=== PATIENT | female | born 2000 | race Two or more races ===

== ENCOUNTER 2023-03-14 09:13 | Emergency (ER) | payer OTHER, SELFPAY ==
[2023-03-14 09:17] VITALS: BP 134/87; PULSE 94; RESP 18; TEMP 36.8; O2SAT 100; BMI 20.9
--- NOTE | 2023-03-14 09:29 | ED.EYEPROB ---
HPI - Eye Problem General Chief complaint: Eye Problems Stated complaint: Left eye swollen/ itchiness Time Seen by Provider: 03/14/23 09:22 Source: patient and RN notes reviewed Mode of arrival: ambulatory History of Present Illness HPI Narrative: This is a 22-year-old female who presents to the emergency department with complaints of left upper eyelid swelling x 4 days. Patient reports that several days ago she woke up and noticed that her left upper eyelid was swollen. She has been applying warm compresses to her left eye multiple times a day without any relief. She has noticed that the swelling has increased over the last few days. No trauma to her left eye. Denies foreign body sensation to her left eye. Denies any ocular symptoms. She has had no fevers, chills, blurred vision, eye pain, visual changes, headache, sinus pain, ear pain, cough, shortness of breath, nausea, vomiting or diarrhea. No other complaints or concerns at this time. MD chief complaint: other (eyelid swelling) Onset (ago): day(s) Onset description: sudden Duration: constant Location: left eye Place: home Mechanism: none Severity: moderate If Pain, Quality: aching Associated symptoms: none Treatments Prior to Arrival: none Related Data Previous Rx's Medication Instructions Recorded erythromycin 5 mg/gram (0.5 %) eye 1 appl ophthalmic-Left DAILY 7 03/14/23 ointment days #3.5 grams Allergies Allergy/AdvReac Type Severity Reaction Status Date / Time No Known Allergies Allergy Verified 03/14/23 09:18 Review of Systems Review of Systems: Yes all other systems are reviewed and are negative [facility] Past Medical History Medical History (Updated 03/14/23 @ 09:38 by Edgar Weber) No known health problems Social History Social History Alcohol intake: never Smoked in Last 30 Days: No Use of substances other than those prescribed or required for medical reasons: Yes Substance Use Type: Marijuana Substance Use Frequency: Occasionally Advance Directives: No Advance Directives Information Provided: No Patient : No Physical Exam Vital Signs: Vital Signs: Last Vital Signs Temp 98.2 F 03/14/23 09:17 Pulse 94 03/14/23 09:17 Resp 18 03/14/23 09:17 BP 134/87 03/14/23 09:17 Pulse Ox 100 03/14/23 09:17 O2 Del Method Room Air 03/14/23 09:17 BMI result Body Mass Index 20.9 General: Awake, alert, and oriented X3. No acute distress. HEENT: Normal inspection, conjunctivae normal, sclera clear. Left upper eyelid is edematous and mildly tender to palpation, no erythema to the upper eyelid. Lower lid normal. Eversion of left upper eyelid revealing mild erythema without punctate lesion. No pain with EOMI. PERRL bilaterally. CVS: Normal heart rate and rhythm. Pulses normal. S1S2 regular. Respiratory: No respiratory distress, lungs clear to auscultation bilaterally. Skin: Warm, dry, no rashes noted to exposed skin. Normal skin color. Normal skin turgor. Extremities: Normal inspection. Neuro: Oriented X 3. No motor deficit. No sensory deficit. Medical Decision Making Medical Decision Making MDM Narrative: 22 y/o F presents for left upper eyelid swelling x 4 days. No relief at home with warm compresses. On examination, patient's VSS. No conjunctiva erythema or edema. No ocular pain, tearing, or pain with EOMI only upper eyelid edema on examination. Upper eyelid eversion with mild erythema and edema. No foreign body sensation to the left eye. Patient has no ocular pain or symptoms and only is complaining of eyelid symptoms. Will defer fluroescein stain at this time.Will treat as a blepharitis with topical erythromycin. Visual acuity intact. Given red flag signs of when to return for re-evaluation. Patient understands and agrees with plan. Differential Diagnosis Differential Diagnoses: The differential diagnosis associated with the presentation includes blepharitis, hordeolum, conjunctivitis, pre-septal cellulitis - unlikely Discharge Plan Discharge Clinical Impression: Blepharitis of left eyelid Patient Disposition: Home, Self-Care Instructions: Blepharitis (ED) Additional Instructions: Use antibiotic ointment as directed. Continue applying warm compresses to your left eye. Do this every 2-3 hours. Watch for any worsening symptoms including but not limited to worsening swelling, increased redness, fevers, chills, eyeball pain, or visual changes. Follow up with your primary care physician. Return with any new or worsening symptoms. Prescriptions: New erythromycin 5 mg/gram (0.5 %) ointment 1 appl ophthalmic-Left DAILY 7 Days Qty: 3.5 0RF Interventions: ED Discharge Assessment Last Done: 03/14/23 09:53 Discharge Date/Time: 03/14/23 09:54
== END 2023-03-14 09:54 | disposition home or self-care (01) ==
PROVIDERS: Emergency Provider Emergency Medicine
DX: H01.004 Unspecified blepharitis left upper eyelid (principal)
CPT/HCPCS: 99283; 99284

== ENCOUNTER 2024-09-03 18:30 | Emergency (ER) | payer OTHER, SELFPAY ==
[2024-09-03 18:38] VITALS: BP 106/70; PULSE 75; RESP 16; TEMP 36.8; O2SAT 99; BMI 19.9
--- NOTE | 2024-09-03 18:46 | ED.GENADULT ---
HPI - General Adult General Chief complaint: Upper Respiratory Symptoms Stated complaint: flu like symptoms Time Seen by Provider: 09/03/24 18:50 Source: patient and family Mode of arrival: ambulatory Limitations: no limitations History of Present Illness ED Provider: DR. Gale HPI narrative: 24-year-old female presented with her significant other for evaluation of same symptoms of generalized body ache, runny nose, coughing, sore throat. Related Data Previous Rx's ?Medication ?Instructions ?Recorded erythromycin 5 mg/gram (0.5 %) eye 1 appl ophthalmic-Left DAILY 7 03/14/23 ointment days #3.5 grams Allergies Allergy/AdvReac Type Severity Reaction Status Date / Time No Known Allergies Allergy Verified 09/03/24 18:41 Review of Systems Review of Systems: All other systems are reviewed and are negative Constitutional: Reports as per HPI and Reports no additional constitutional complaints Eyes: Reports as per HPI and Reports no additional eye complaints Reports system reviewed and no additional complaints, except as documented Cardiovascular: Reports as per HPI and Reports no additional cardiovascular complaints Respiratory: Reports as per HPI and Reports no additional respiratory complaints Gastrointestinal: Reports as per HPI and Reports no additional gastrointestinal complaints Genitourinary: Reports no additional female genitourinary complaints Musculoskeletal: Reports no additional musculoskeletal complaints Skin/Breast: Reports system reviewed and no additional complaints, except as docu Psychiatric: Reports no additional psychiatric complaints Endocrine: Reports no additional endocrine complaints Hematologic/Lymphatic: Reports no additional hematologic/lymphatic complaints Allergic/Immunologic: Reports no additional allergic/immunologic complaints Reports system reviewed and no additional complaints, except as documented and Reports Abnormal speech present [facility] Past Medical History Medical History No known health problems Social History Social History Alcohol intake: never Substance Use Type: Marijuana Advance Directives: No Advance Directives Information Provided: No Physical Exam ED Vital Signs: Vital Signs - 24 hr 09/03/24 18:38 Temperature 98.3 F Pulse Rate 75 Respiratory Rate 16 Blood Pressure 106/70 Pulse Oximetry 99 Oxygen Delivery Method Room Air BMI result Body Mass Index 19.9 Vital signs have been reviewed and appear to be correct. Blood pressure elevated. Heart rate normal. Respiratory rate normal. Temperature normal. Oxygen saturation normal. Appearance: Alert. Oriented X3. No acute distress. Head: Normal external exam. Normocephalic. Atraumatic. No Conley signs noted. No raccoon eyes noted Eyes: PERRLA. EOMI. Conjunctiva and sclera normal. Eyelids normal. ENT: TM's Normal. Pharynx normal. Uvula midline. Moist mucous membranes. No trismus noted. No drooling noted. No muffled voice noted. Neck: Normal inspection. Neck supple. FROM. No adenopathy. Thyroid Normal. No meningeal signs. No neck mass noted. CVS: Normal heart rate and rhythm. Heart sound normal. No murmurs noted. Pulses normal throughout. Respiratory: No respiratory distress. Painless inspiration. Breath sounds normal. No wheezes/rales/rhonchi noted. Chest nontender. No accessory muscle usage noted or decreased air movement noted. Abdomen: Soft and nontender. Bowel sounds normal in all 4 quadrants. No distention noted. No organomegaly noted. No visible injury noted. Back: No CVA tenderness. Full range of motion noted. Skin: Skin warm and dry. Normal skin color. Normal skin turgor. No rashes/lesions/lacerations noted. Extremities: No lower extremity edema. Extremities exhibit normal range of motion. Extremities nontender. Neuro: Oriented X 3. Cranial nerve exam: II-XII are grossly intact No motor deficit. No sensory deficit. Reflexes normal. Course Course Course Narrative: RME performed by Gwendolyn Hester PA-C. Patient is a 24 year old assigned female at presenting to the emergency department with congestion and feeling generally unwell. Detailed physical exam and review of systems are deferred to the flag decorator. Swabs ordered. Patient placed back in the waiting room pending room availability and results. Medical Decision Making Differential Diagnosis Differential Diagnoses: The differential diagnosis associated with the presentation includes ( Upper viral respiratory infection, strep pharyngitis.) Admission/Observation Consideration of admission/observation: Escalation of care including admission/observation considered Lab Data MDM Lab Attestation statement: I reviewed the patient's lab results. Labs: Lab Results 09/03/24 Range/Units 19:01 Influenza Type A (PCR) NEGATIVE (Negative) Influenza Type B (PCR) NEGATIVE (Negative) RSV RNA Qual (PCR) NEGATIVE (Negative) SARS-CoV-2 RNA (RT-PCR) NEGATIVE (Negative) S. pyogenes GrpA KYE Negative (Negative) Discharge Plan Discharge Clinical Impression: Viral infection Patient Disposition: Home, Self-Care Instructions: Viral Syndrome (ED) Additional Instructions: Wear face mask at all times, frequent hand wash, keep social distancing, self quarantine. Follow-up with your PCP. Prescriptions: No Action erythromycin 5 mg/gram (0.5 %) ointment 1 appl ophthalmic-Left DAILY 7 Days Qty: 3.5 0RF Print Language: Icelandic
[2024-09-03 19:24] LABS: IDNOW Serial# 6674DD1D; Strep A Nucleic Acid Negative (Negative)
[2024-09-03 19:53] LABS: Influenza A PCR NEGATIVE (Negative); Influenza B PCR NEGATIVE (Negative); Resp Syncy Virus RNA Qual PCR NEGATIVE (Negative); SARS COV2 PCR INHOUSE NEGATIVE (Negative)
[2024-09-03 20:32] VITALS: BP 106/70; PULSE 75; RESP 16; TEMP 36.8; O2SAT 99
== END 2024-09-03 20:46 | disposition home or self-care (01) ==
PROVIDERS: Physician Assistant Medical; Emergency Provider Emergency Medicine
DX: B34.9 Viral infection, unspecified (principal); J02.9 Acute pharyngitis, unspecified; Z03.818 Encounter for observation for suspected exposure to other biological agents ruled out; R05.9 Cough, unspecified
CPT/HCPCS: 0241U; 87651; 99282; 99283

== ENCOUNTER 2024-09-25 21:34 | Emergency (ER) | payer OTHER, SELFPAY ==
[2024-09-25 21:41] VITALS: BP 117/68; PULSE 103; RESP 18; TEMP 36.3; O2SAT 100; BMI 21.7
[2024-09-25] MEDS: Ibuprofen 400 MG TABLET PO (22:20)
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
[2024-09-25 22:25] VITALS: BP 117/68; PULSE 103; RESP 18; TEMP 36.3; O2SAT 100
== END 2024-09-25 22:25 | disposition home or self-care (01) ==
PROVIDERS: Emergency Provider Internal Medicine
DX: S09.90XA Unspecified injury of head, initial encounter (principal); S49.92XA Unspecified injury of left shoulder and upper arm, initial encounter; Y04.2XXA Assault by strike against or bumped into by another person, initial encounter; Y93.89 Activity, other specified; Y92.89 Other specified places as the place of occurrence of the external cause; Y99.8 Other external cause status
CPT/HCPCS: 99283

== ENCOUNTER 2025-05-17 07:55 | Emergency (ER) | payer SELFPAY ==
--- NOTE | ~2025-05-17 | XR_ITS ---
EXAMINATION: XR CHEST CLINICAL INFORMATION: COUGH, CONGESTED COMPARISON: None available. TECHNIQUE: 2 views of the chest were obtained. FINDINGS: The cardiac, hilar, and mediastinal contours are normal. The lungs are clear bilaterally. There is no pneumothorax or pleural effusion. There is no focal osseous or soft tissue abnormality. XR/XR chest 2V IMPRESSION: Normal chest. Electronically signed by: Bharath Thompson MD 05/17/2025 08:15 AM EDT
[2025-05-17 08:01] VITALS: BP 128/68; PULSE 88; RESP 20; TEMP 36.4; O2SAT 100; BMI 20.8
--- NOTE | 2025-05-17 08:25 | ED_ITS ---
HPI - General Adult General Chief complaint: Upper Respiratory Symptoms Stated complaint: Flu symptoms, SOB Time Seen by Provider: 05/17/25 08:24 Source: patient, RN notes reviewed and old records reviewed Mode of arrival: ambulatory Limitations: no limitations History of Present Illness ED Provider: Monique OMER narrative: Patient is a 25-year-old female with history of asthma presenting to the emergency department with complaint of congestion, sore throat, nonproductive cough and shortness of breath for the past week. Primary complaint is dyspnea. Has been using inhalers and nebulizer at home with little relief. Denies any known sick contacts. Denies chest pain or palpitations. Denies any abdominal pain, nausea, vomiting, diarrhea. complaint: dyspnea Onset (ago): week(s) Related Data Previous Rx's ?Medication ?Instructions ?Recorded erythromycin 5 mg/gram (0.5 %) eye 1 appl ophthalmic-L eft DAILY 7 03/14/23 ointment days #3.5 grams benzonatate 100 mg capsule 100 mg PO TID PRN cough #14 caps 05/17/25 prednisone 20 mg tablet 20 mg PO DAILY #7 tabs 05/17 Allergies Allergy/AdvReac Type Severity Reaction Status Date / Time No Known Allergies Allergy Verified 05/17/25 08:03 Review of Systems Review of Systems: As per HPI Yes all other systems are reviewed and are negative Constitutional: Constitutional: Reports as per HPI [facility] Past Medical History Medical History No known health problems Social History Social History Alcohol intake: never Smoked in Last 30 Days: No Use of substances other than those prescribed or required for medical reasons: Yes Substance Use Type: Marijuana Substance Use Frequency: Daily Advance Directives: No Advance Directives Information Provided: Yes Physical Exam ED Vital Signs: Vital Signs - 24 hr 05/17/25 08:01 05/17/25 09:36 Temperature 97.6 F Pulse Rate 88 88 Respiratory Rate 20 20 Blood Pressure 128/68 Pulse Oximetry 100 Oxygen Delivery Method Room Air BMI result Body Mass Index 20.8 Vital signs have been reviewed and appear to be correct. Blood pressure normal. Heart rate normal. Respiratory rate normal. Temperature normal. Oxygen saturation normal. Const General: cooperative, healthy appearing and no acute distress Orientation/consciousness: oriented to person, oriented to place, oriented to time and patient oriented x3 Limitations: no limitations HENMT Head: Yes normocephalic and Yes atraumatic Ears: external ears normal General nose exam: Normal external nose present Face and sinus: Yes face symmetric Mouth: oropharynx normal and moist mucous membranes Throat: Yes uvula midline Eyes Pupils: Equal, round and reactive pupils present Neck Neck: Yes normal visual inspection and Yes supple Resp Effort & Inspection: normal respiratory effort and able to speak in complete sentences Auscultation: clear to auscultation bilaterally and wheezes scattered wheezes Cardio Rate: regular rate Rhythm: regular rhythm Heart sounds: S1 normal heart sound present and S2 normal heart sound present GI Palpation (GI): Soft to palpation and nontender Auscultation: normoactive bowel sounds General: Yes no CVA tenderness Back/Spine/Pelvis Back: no CVA tenderness Skin General skin exam: elasticity normal and turgor normal Neuro General: oriented to person, oriented to place, oriented to time, patient oriented x3, moves all extremities, no focal motor deficits and CN's II-XI intact bilaterally Cranial nerves: Yes Equal, round and reactive pupils present Cognition (Neuro): normal cognition Extrem General: Yes full ROM, Yes no pedal edema and Yes no calf tenderness Psych Mental Status: mental status grossly normal Affect: normal affect Thought process: Normal thought process present Medications Administered Discontinued Medications Generic Name Dose Route Start Last Admin Trade Name Freq PRN Reason Stop Dose Admin Albuterol Sulfate 2.5 mg/ 0 mg 05/17/25 09:29 05/17/25 09:36 Albuterol/Ipratropium 3 ml INHALE 05/17/25 09:30 1 dose ONCE ONE Administration Medical Decision Making Medical Decision Making [facility] Narrative: Patient is a 25-year-old female with history of asthma presenting to the emergency department with complaint of congestion, sore throat, nonproductive cough and shortness of breath for the past week. On exam patient is awake, A+Ox3, VS WNL, afebrile, normal neurological exam without focal deficits, physical exam findings as above. Given reported symptoms and physical exam findings, initial differential includes but is not limited to viral illness, COVID, flu, RSV, bronchitis, pneumonia, asthma exacerbation. Viral panel negatve. X-ray chest notable for no evidence of pneumonia. My interpretation is in agreement with the radiologist's interpretation. Breathing treatment ordered with improvement in symptoms. Results discussed with patient and all questions answered. Feel symptoms are likely due to asthma exacerbation triggered by recent viral URI. Will discharge patient on course of prednisone with benzonatate, advised to continue Tylenol and ibuprofen. Follow up with PCP as needed. Return precautions discussed at bedside. Patient verbalized understanding of and agreement with plan. Differential Diagnosis Differential Diagnoses: The differential diagnosis associated with the presentation includes As per [facility] Admission/Observation Consideration of admission/observation: Escalation of care including admission/observation considered Patient would have been admitted to the hospital had their work up had any findings where hospital admission was appropriate and their clinical presentation warranted hospital admission. Lab Data [facility] Lab Attestation statement: I reviewed the patient's lab results. As per [facility] Labs: Lab Results 05/17/25 Range/Units 08:29 Influenza Type A (PCR) NEGATIVE (Negative) Influenza Type B (PCR) NEGATIVE (Negative) RSV RNA Qual (PCR) NEGATIVE (Negative) SARS-CoV-2 RNA (RT-PCR) NEGATIVE (Negative) S. pyogenes GrpA KYE Negative (Negative) Independent Interpretation I performed an independent interpretation of an: Plain X-Ray Interpretation: NO evidence of pneumonia on chest x-ray Radiology Impression Discussion of test interpretation with radiology: I have reviewed the radiologist's reading. Radiologist Impression: XR/XR chest 2V IMPRESSION: Normal chest. External Record Review External record reviewed: Inpatient record, Office record and Outpatient record Prescription Management I considered prescription management with: Other Discharge Plan Discharge Clinical Impression: Viral URI Asthma exacerbation Qualifiers: Asthma severity: mild Asthma persistence: unspecified Qualified Code(s): J45.901 - Unspecified asthma with (acute) exacerbation Patient Disposition: Home, Self-Care Instructions: Asthma (DC), Upper Respiratory Infection (DC), Viral Syndrome (ED) Additional Instructions: You were evaluated in the emergency department today for shortness of breath and cough. Your Covid, flu, RSV, and strep tests were all negative. Your chest x- ray did not show evidence of pneumonia. Your symptoms are likely related to a viral illness which will resolve on its own with time and rest. You should ensure adequate fluid intake, and can use Tylenol 650 mg or ibuprofen 600 mg every 6 hours as needed for fever or discomfort. You are being prescribed a course of prednisone which is a steroid to decrease inflammation. You are being prescribed benzonatate for cough, it is important that you keep this out of the reach of children. Take all medications as prescribed. We also recommend using over the counter nasal saline spray to thin your mucous. Please follow-up with your primary care provider this week. Return to the emergency department if you develop chest pain, worsening shortness of breath, difficulty swallowing, fever 100.4? F or greater or any other concerning symptoms. Prescriptions: New prednisone 20 mg tablet 20 mg PO DAILY Qty: 7 0RF benzonatate 100 mg capsule 100 mg PO TID PRN (Reason: cough) Qty: 14 0RF No Action erythromycin 5 mg/gram (0.5 %) ointment 1 appl ophthalmic-Left DAILY 7 Days Qty: 3.5 0RF Stand Alone Forms: Work/School Release Print Language: Libyan
[2025-05-17 08:53] LABS: IDNOW Serial# 58CA691E; Strep A Nucleic Acid Negative (Negative)
--- OUTSIDE RECORDS SUMMARY | 2025-05-17 09:14 | XMS_ITS | Clinical Summary ---
Author Organization [employer] Address [address] [place] [address] Care Team Providers Care Grades 1 Thru 6 Visiting Teacher Name Role Phone Unavailable Primary Care Provider Unavailabl e Allergies No known active allergies Medications chlorhexidine (Peridex) 0.12 % solution Swish 15 mL morning and night for 1 minute. Spit, do not swallow. Do not eat or drink for 30 minutes following use. 473 mL 4 Active Social History Tobacco Use Types Packs/Day Years Used Date Smoking Tobacco: Never Smokeless Tobacco: Never Tobacco Cessation:Counseling Given: Not Answered Alcohol Use Standard Drinks/Week Comments Never 0 (1 standard drink = 0.6 oz pur e alcohol) Comments Unknown Sex and Gender Information Value Date Recorded Sex Assigned at Female 09/03/2023 10:36 AM EDT Legal Sex Female 10:35 AM EDT Gender Identity Choose not to disclose 10:36 AM EDT Sexual Orientation Lesbian or Mares 09/03/2023 10 :36 AM EDT Last Filed Vital Signs Vital Sign Reading Time Taken Comments Blood Pressure 86/46 10/21/2024 2:31 PM EST Pulse 70 10/06/2023 8:08 AM EST Temperature - - Respiratory Rate - - Oxygen Saturation - - Inhaled Oxygen Concentration - - Weight - - Height - - Body Mass Index - - Plan of Treatment Health Maintenance Due Date Last Done Comments Dental Oral Exam 2000 Dental Prophylaxis 2000 Depression Screening 2000 HIV Screening 2000 SDOH Screening 2000 Disability Screening 2000 Alcohol/Substance Use Screening 2012 Family Planning (PISQ) 2015 HPV Vaccines (1 - 3-dose series) 2015 Hepatitis C Screening 2018 DTaP/Tdap/Td Vaccines (1 - Tdap) 2019 Hepatitis B Vaccines (1 of 3 - 19+ 3-dose series) 2019 Pneumococcal Vaccine: Pediat rics (0 to 5 Years) and At-Risk Patients (6 to 49) Years (1 of 2 - PCV) 2019 Pap Smear 2021 COVID-19 Vaccine (1 - 2023-2 5 season) 2024 Dental X-Ray: Bitewings 09/04/2024 09/03/2023 Influenza Vaccine (Season Ended) 2025 Tobacco Screening 10/21/2025 10/21/2024 Dental X-Ray: Full Mouth 10/22/2027 10/21/2024 Zoster Vaccines (1 of 2) 2050 RSV Patients and Pa tients Aged 60 years or older (1 - 1-dose 75+ series) 2075 HIB Vaccines Aged Out No longer eligi ble based on patient's age to complete this topic Hepatitis A Vaccines Aged Out No long er eligible based on patient's age to complete this topic IPV Vaccines Aged Out No longer eligi ble based on patient's age to complete this topic Meningococcal B Vaccine Aged Out No l onger eligible based on patient's age to complete this topic Meningococcal Vaccine Aged Out No jose luis naga eligible based on patient's age to complete this topic RSV under 20 months Aged Out No longe r eligible based on patient's age to complete this topic Rotavirus Vaccines Aged Out No longer eligible based on patient's age to complete this topic Procedures Procedure Name Priority Date/Time Associated Diagnosis Comments PANORAMIC RADIOGRAPHIC IMAGE Routine 10/21/2024 2:00 PM EST BITEWING - SINGLE RADIOGRAPHIC IMAGE Routine 09/03/2023 11:30 AM EDT Dental abscess from Last 3 Months or Most Recently Relevant to Health Maintenance Insurance DENTAL - HSN FULL (MEDICAID)
[2025-05-17 09:24] LABS: Influenza A PCR NEGATIVE (Negative); Influenza B PCR NEGATIVE (Negative); Resp Syncy Virus RNA Qual PCR NEGATIVE (Negative); SARS COV2 PCR INHOUSE NEGATIVE (Negative)
[2025-05-17 09:36] VITALS: PULSE 88; RESP 20; O2SAT 96
[2025-05-17] MEDS: Albuterol Sulfate 2.5 MG, Albuterol/Iprat 2.5/0.5MG 3 ML 3 ML INHALE (09:36)
[2025-05-17 10:49] VITALS: BP 128/68; PULSE 88; RESP 20; TEMP 36.6; O2SAT 97
== END 2025-05-17 10:51 | disposition home or self-care (01) ==
PROVIDERS: Registered Nurse Emergency; Emergency Provider Emergency Medicine
DX: J06.9 Acute upper respiratory infection, unspecified (principal); J45.901 Unspecified asthma with (acute) exacerbation; J02.9 Acute pharyngitis, unspecified; R06.00 Dyspnea, unspecified; Z03.818 Encounter for observation for suspected exposure to other biological agents ruled out; R06.02 Shortness of breath; R05.9 Cough, unspecified
CPT/HCPCS: 0241U; 71046; 87651; 94640; 94664; 99284

== ENCOUNTER → 2025-05-17 08:04 | Outpatient (BNV) | payer SELFPAY | PROVIDERS: Emergency Provider Emergency Medicine; Visit Provider Radiology Diagnostic Radiology | DX: R05.9 Cough, unspecified (principal); R09.89 Other specified symptoms and signs involving the circulatory and respiratory systems | CPT/HCPCS: 71046 ==